=== PATIENT | female | born 1950 | race Caucasian/White ===

== ENCOUNTER 2017-07-04 15:55 | Inpatient (IN) | payer OTHER ==
[~2017-07-04] VITALS: Ht 167.6 cm; Wt 75.2 kg
[2017-07-04 17:48] LABS: Basophils # (auto) 0.1 uL; Basophils % (auto) 0.5 % (0.0-2.0); Eosinophils # (auto) 0.1 uL; Eosinophils % (auto) 0.2 % (0.0-7.0); Hematocrit 43.6 % (36.0-46.0); Hemoglobin 14.4 g/dL (12.2-16.2); Lymphocytes # (auto) 1.4 uL; Lymphocytes % (auto) 6.3 % (10.0-50.0); Mean Corpuscular Hemoglobin 29.8 pg (28.0-32.0); Mean Corpuscular Hgb Conc. 32.9 g/dL (32.0-36.0); Mean Corpuscular Volume 90.6 fL (80.0-100.0); Monocytes # (auto) 1.1 uL; Monocytes % (auto) 4.7 % (0.0-12.0); Neutrophils # (auto) 19.9 uL; Neutrophils % (auto) 88.3 % (37.0-80.0); Nucleated Red Blood Cells % 0.1 %; Platelet Count (auto) 356 10^3/uL (140-450); Red Blood Cells 4.81 10^6/uL (4.0-5.20); Red Cell Distribution Width 13.7 % (11.8-14.3); White Blood Cell 22.5 10^3/uL (4.4-10.8)
[2017-07-04 18:11] LABS: Alanine Aminotransferase 33 U/L (13-56); Albumin 3.6 g/dL (3.4-5.0); Alkaline Phosphatase 110 U/L (45-117); Anion Gap 9 (5-15); Aspartate Aminotransferase 29 U/L (15-37); BUN/Creatinine Ratio 13.5; Bilirubin, Total 0.8 mg/dL (0.2-1.0); Blood Urea Nitrogen 12 mg/dL (7-18); Calcium 8.9 mg/dL (8.5-10.1); Carbon Dioxide 26 mmol/L (21-32); Chloride 101 mmol/L (98-107); GFR African American 82 mL/min; GFR Non-African American 68 mL/min; Glucose 172 mg/dL (74-106); Magnesium 2.4 mg/dL (1.6-2.6); Sodium 136 mmol/L (136-145); Total Protein 7.7 g/dL (6.4-8.2)
[2017-07-04] MEDS ORDERED: VANCOMYCIN 1GM/250ML 250 ML IV ONE (21:00)
[2017-07-04] MEDS ORDERED: PIPERACILLIN-TAZOB 3.375GM 50 ML IV ONE (21:00)
[2017-07-04] MEDS ORDERED: HYDROmorphone HCL 2 MG/ML VL IV ONE (22:15)
[2017-07-04] MEDS ORDERED: ONDANSETRON HCL 4 MG/2 ML VIAL IV ONE (22:15)
[2017-07-04] MEDS ORDERED: SODIUM CHLORIDE 0.9% 1,000 ML IV ONE (23:15)
[2017-07-04] MEDS ORDERED: HYDROcodone-ACET 5/325MG TAB PO PRN (23:30)
[2017-07-04] MEDS: SODIUM CHLORIDE 0.9% 1,000 ML IV SCH (23:30)
[2017-07-05 00:18] VITALS: BP 140/61
[2017-07-05] MEDS: HYDROmorphone HCL 2 MG/ML VL IV PRN ×2 (02:21→20:05)
[2017-07-05 05:00] VITALS: BP 95/47
[2017-07-05 06:05] LABS: Basophils # (auto) 0 uL; Basophils % (auto) 0.2 % (0.0-2.0); Eosinophils # (auto) 0.1 uL; Eosinophils % (auto) 0.4 % (0.0-7.0); Hematocrit 37.9 % (36.0-46.0); Hemoglobin 12.5 g/dL (12.2-16.2); Lymphocytes # (auto) 1.4 uL; Lymphocytes % (auto) 7.6 % (10.0-50.0); Mean Corpuscular Hemoglobin 29.8 pg (28.0-32.0); Mean Corpuscular Volume 90.5 fL (80.0-100.0); Monocytes # (auto) 1.3 uL; Monocytes % (auto) 6.8 % (0.0-12.0); Platelet Count (auto) 307 10^3/uL (140-450); Red Blood Cells 4.19 10^6/uL (4.0-5.20); Red Cell Distribution Width 13.7 % (11.8-14.3); White Blood Cell 18.8 10^3/uL (4.4-10.8)
[2017-07-05] MEDS: metroNIDAZOLE 500MG/100ML 100 ML IV SCH ×3 (06:13→21:34)
[2017-07-05 06:20] LABS: INR 1.13 (0.9-1.15); Prothrombin Time 12.3 sec (9.37-12.3)
[2017-07-05 06:24] LABS: Albumin 2.8 g/dL (3.4-5.0); Calcium 8.2 mg/dL (8.5-10.1); Potassium 3.7 mmol/L (3.5-5.1)
[2017-07-05 06:26] LABS: BUN/Creatinine Ratio 16.9
[2017-07-05 06:30] LABS: Bilirubin, Total 1.1 mg/dL (0.2-1.0); Total Protein 6.3 g/dL (6.4-8.2)
[2017-07-05] MEDS: cefTRIAXone 1GM/10ml IVPUSH 10 ML IV SCH (09:06)
[2017-07-05 09:08] VITALS: BP 105/52
[2017-07-05] MEDS: ACETAMINOPHEN 500 MG TAB PO PRN (11:51)
[2017-07-05] MEDS: SODIUM CHLORIDE 0.9% 1,000 ML IV SCH ×3 (11:52→22:11)
[2017-07-05 13:45] VITALS: BP 92/52
[2017-07-05 17:03] VITALS: BP 133/91
[2017-07-05] MEDS: ONDANSETRON HCL 4 MG/2 ML VIAL IV PRN (20:05)
[2017-07-05 22:00] VITALS: BP 98/56
[2017-07-06] MEDS: HYDROmorphone HCL 2 MG/ML VL IV PRN ×6 (04:54→21:31)
[2017-07-06] MEDS: ONDANSETRON HCL 4 MG/2 ML VIAL IV PRN ×3 (04:54→21:31)
[2017-07-06 05:00] VITALS: BP 100/54
[2017-07-06] MEDS: metroNIDAZOLE 500MG/100ML 100 ML IV SCH ×3 (05:30→21:31)
[2017-07-06 06:58] LABS: Basophils # (auto) 0 uL; Basophils % (auto) 0.2 % (0.0-2.0); Eosinophils # (auto) 0 uL; Eosinophils % (auto) 0.2 % (0.0-7.0); Hematocrit 32.7 % (36.0-46.0); Lymphocytes # (auto) 1.3 uL; Lymphocytes % (auto) 9.7 % (10.0-50.0); Mean Corpuscular Hgb Conc. 33.7 g/dL (32.0-36.0); Mean Corpuscular Volume 88.9 fL (80.0-100.0); Monocytes # (auto) 0.8 uL; Monocytes % (auto) 6.4 % (0.0-12.0); Neutrophils # (auto) 10.8 uL; Neutrophils % (auto) 83.5 % (37.0-80.0); Platelet Count (auto) 288 10^3/uL (140-450); Red Blood Cells 3.68 10^6/uL (4.0-5.20); Red Cell Distribution Width 13.6 % (11.8-14.3); White Blood Cell 12.9 10^3/uL (4.4-10.8)
[2017-07-06 07:16] LABS: Albumin 2.6 g/dL (3.4-5.0); BUN/Creatinine Ratio 25.5; Potassium 3.4 mmol/L (3.5-5.1); Total Protein 5.9 g/dL (6.4-8.2)
[2017-07-06 07:50] LABS: Bilirubin, Total 1.2 mg/dL (0.2-1.0)
[2017-07-06] MEDS: SODIUM CHLORIDE 0.9% 1,000 ML IV SCH (08:00)
[2017-07-06 08:53] LABS: Urine Bacteria NONE SEEN /hpf (None Seen); Urine Blood 1+ /uL (Negative); Urine Mucus FEW (None Seen); Urine Specific Gravity 1.027 (1.001-1.035); Urine WBC 8 /hpf (0 - 5)
[2017-07-06 09:00] VITALS: BP 101/62
[2017-07-06] MEDS ORDERED: ceFAZolin 1GM/50ML 50 ML IV ONE (09:35)
[2017-07-06] MEDS ORDERED: MIDAZOLAM HCL 1MG/1ML-2 ML VIAL ONE (09:48)
[2017-07-06] MEDS ORDERED: fentaNYL CITRATE 100 MCG/2 ML VL ONE (09:48)
[2017-07-06] MEDS ORDERED: PROPOFOL 10 MG/ML 20 ML IV ONE (09:48)
[2017-07-06] MEDS ORDERED: ROCURONIUM 10MG/ML 10ML VIAL IV ONE (09:48)
[2017-07-06] MEDS ORDERED: ONDANSETRON HCL 4 MG/2 ML VIAL IV ONE (11:15)
[2017-07-06] MEDS ORDERED: ePHEDrine SULFATE 50 MG/ML AMP IV PRN (11:15)
[2017-07-06] MEDS ORDERED: hydrALAZINE HCL 20 MG/ML VL IV PRN (11:15)
[2017-07-06] MEDS: cefTRIAXone 1GM/10ml IVPUSH 10 ML IV SCH (13:05)
[2017-07-06 13:14] LABS: Basophils # (auto) 0 uL; Basophils % (auto) 0.3 % (0.0-2.0); Eosinophils # (auto) 0 uL; Eosinophils % (auto) 0.1 % (0.0-7.0); Hematocrit 31.2 % (36.0-46.0); Hemoglobin 10.6 g/dL (12.2-16.2); Lymphocytes # (auto) 0.8 uL; Lymphocytes % (auto) 6.3 % (10.0-50.0); Mean Corpuscular Hemoglobin 30.6 pg (28.0-32.0); Mean Corpuscular Hgb Conc. 33.8 g/dL (32.0-36.0); Mean Corpuscular Volume 90.3 fL (80.0-100.0); Monocytes # (auto) 0.6 uL; Monocytes % (auto) 4.3 % (0.0-12.0); Neutrophils # (auto) 11.5 uL; Platelet Count (auto) 279 10^3/uL (140-450); Red Blood Cells 3.45 10^6/uL (4.0-5.20); Red Cell Distribution Width 13.6 % (11.8-14.3)
[2017-07-06 17:19] VITALS: BP 127/70
[2017-07-06] MEDS: D5W/SOD CHL 0.45%/KCL 20MEQ 1,000 ML IV SCH (18:50)
[2017-07-06 21:45] VITALS: BP 116/79
[2017-07-07] MEDS: D5W/SOD CHL 0.45%/KCL 20MEQ 1,000 ML IV SCH ×3 (00:50→17:54)
[2017-07-07] MEDS: HYDROmorphone HCL 2 MG/ML VL IV PRN (03:46)
[2017-07-07] MEDS: ONDANSETRON HCL 4 MG/2 ML VIAL IV PRN (03:46)
[2017-07-07 05:15] VITALS: BP 108/69
[2017-07-07] MEDS: metroNIDAZOLE 500MG/100ML 100 ML IV SCH ×4 (05:33→21:34)
[2017-07-07 06:30] LABS: Basophils # (auto) 0 uL; Basophils % (auto) 0.1 % (0.0-2.0); Eosinophils # (auto) 0 uL; Hematocrit 30.5 % (36.0-46.0); Hemoglobin 10.2 g/dL (12.2-16.2); Lymphocytes # (auto) 0.7 uL; Lymphocytes % (auto) 5.9 % (10.0-50.0); Mean Corpuscular Hemoglobin 30.1 pg (28.0-32.0); Mean Corpuscular Hgb Conc. 33.4 g/dL (32.0-36.0); Monocytes # (auto) 0.7 uL; Monocytes % (auto) 5.8 % (0.0-12.0); Neutrophils # (auto) 10.6 uL; Neutrophils % (auto) 88.2 % (37.0-80.0); Platelet Count (auto) 312 10^3/uL (140-450); Red Blood Cells 3.38 10^6/uL (4.0-5.20); Red Cell Distribution Width 13.4 % (11.8-14.3)
[2017-07-07 06:51] LABS: Albumin 2.4 g/dL (3.4-5.0); Bilirubin, Total 0.4 mg/dL (0.2-1.0); Potassium 3.8 mmol/L (3.5-5.1)
[2017-07-07 08:31] VITALS: BP 113/71
[2017-07-07] MEDS: cefTRIAXone 1GM/10ml IVPUSH 10 ML IV SCH (09:39)
[2017-07-07] MEDS: ACETAMINOPHEN 500 MG TAB PO PRN (11:09)
[2017-07-07 12:40] VITALS: BP 122/81
[2017-07-07 16:58] VITALS: BP 132/85
[2017-07-07] MEDS: PHENAZOPYRIDINE HCL 100 MG TAB PO SCH (17:53)
[2017-07-07 22:00] VITALS: BP 155/86
[2017-07-08] MEDS: ONDANSETRON HCL 4 MG/2 ML VIAL IV PRN ×2 (01:38→10:11)
[2017-07-08] MEDS: HYDROmorphone HCL 2 MG/ML VL IV PRN (01:39)
[2017-07-08] MEDS: D5W/SOD CHL 0.45%/KCL 20MEQ 1,000 ML IV SCH ×2 (01:50→10:11)
[2017-07-08 01:54] LABS: Urine Bacteria FEW /hpf (None Seen); Urine Blood Negative /uL (Negative); Urine WBC 1 /hpf (0 - 5)
[2017-07-08 05:00] VITALS: BP 112/68
[2017-07-08] MEDS: metroNIDAZOLE 500MG/100ML 100 ML IV SCH ×3 (05:42→23:11)
[2017-07-08] MEDS: PHENAZOPYRIDINE HCL 100 MG TAB PO SCH ×3 (08:28→17:43)
[2017-07-08] MEDS: ACETAMINOPHEN 500 MG TAB PO PRN ×2 (08:28→23:04)
[2017-07-08 09:00] VITALS: BP 114/75
[2017-07-08] MEDS: cefTRIAXone 1GM/10ml IVPUSH 10 ML IV SCH (09:37)
[2017-07-08 13:00] VITALS: BP 156/94
[2017-07-08 17:13] VITALS: BP 137/97
[2017-07-08 22:00] VITALS: BP 145/78
[2017-07-09 04:32] VITALS: BP 143/67
[2017-07-09] MEDS ORDERED: LOPERAMIDE 2 MG/10ml ORAL soln PO ONE (06:15)
[2017-07-09] MEDS: metroNIDAZOLE 500MG/100ML 100 ML IV SCH ×2 (06:21→13:52)
[2017-07-09] MEDS: ACETAMINOPHEN 500 MG TAB PO PRN (06:26)
[2017-07-09] MEDS: PHENAZOPYRIDINE HCL 100 MG TAB PO SCH ×2 (08:17→11:53)
[2017-07-09 09:00] VITALS: BP 119/69
[2017-07-09] MEDS: cefTRIAXone 1GM/10ml IVPUSH 10 ML IV SCH (09:40)
[2017-07-09 12:38] VITALS: BP 124/73
[2017-07-09 15:02] VITALS: BP 124/73
== END 2017-07-09 16:35 | disposition home or self-care (01) | DRG 854 ==
LOC: ER 16:06 → OVERFLOW 16:07 → WEST WING 23:59
PROVIDERS: ADMIT Nurse Practitioner Family; ATTEND Family Medicine
PROC: 0FT44ZZ Resection of Gallbladder, Percutaneous Endoscopic Approach (ICD-10-PCS; principal; 2017-07-06 10:00)
DX: A41.9 Sepsis, unspecified organism (principal); E44.0 Moderate protein-calorie malnutrition; I96 Gangrene, not elsewhere classified; K83.0 Cholangitis; K80.00 Calculus of gallbladder with acute cholecystitis without obstruction; N18.2 Chronic kidney disease, stage 2 (mild); R33.9 Retention of urine, unspecified; E66.9 Obesity, unspecified; Z68.26 Body mass index [BMI] 26.0-26.9, adult; Z80.52 Family history of malignant neoplasm of bladder; Z82.49 Family history of ischemic heart disease and other diseases of the circulatory system
CPT/HCPCS: 36415; 71046; 74176; 80053; 81001; 82150; 82270; 83605; 83735; 84484; 85025; 85610; 85730; 86850; 86900; 86901; 87040; 87070; 87075; 87077; 87081; 87086; 87186; 87205; 87493; 93005; 96365; 96375; J0690; J2250; J2405; J2543; J2704; J3490